=== PATIENT | male | born 1960 | race Caucasian/White ===

== ENCOUNTER 2020-06-04 03:22 | Emergency (ER) | payer MEDICARE, OTHER ==
[~2020-06-04] VITALS: Ht 182.9 cm; Wt 181.8 kg
[~2020-06-04 03:22] MED LIST: ALBU8HFA IH; ASPI81TA87 PO; ATOR40TA28 PO; CARV12 PO; CARV3 PO; CARV6 PO; DICL2100G TP; FERR236T3 PO; FERR324T23 PO; FURO40 PO; ISOS30TA92 PO; LISI-893 PO; NYST15PO3 TP; PANT-31 PO; RIVA20TA PO; SIME80TA12 PO; TRAM50TA4 PO; [UNRECOGNIZED DRUG - REMARK] PO
[2020-06-04] MEDS ORDERED: ASPIRIN 81 MG CHEWABLE TABLET PO ONE (06:30)
[2020-06-04] MEDS ORDERED: NITROGLYCERIN 2% (1 GM=INCH) PACKET TP ONE (06:30)
[2020-06-04 10:31] LABS: BASOPHILS % (AUTO) 0.5 % (0.0-2.0); EOSINOPHILS % (AUTO) 6.8 % (1.0-6.0); HEMATOCRIT 39.4 % (41-53); HEMOGLOBIN 12.7 g/dL (13.5-17.5); LYMPHOCYTES # (AUTO) 0.8 K/uL (1.0-4.8); LYMPHOCYTES % (AUTO) 13.1 % (22.0-44.0); MEAN CORPUSCULAR HGB CONC 32.1 G/dL (31.0-37.0); MEAN CORPUSCULAR VOLUME 84 fL (80-100); MONOCYTES # (AUTO) 0.5 K/uL (0.1-1.0); NEUTROPHILS # (AUTO) 4.4 K/uL (1.8-7.7); NEUTROPHILS % (AUTO) 71.6 % (40.0-70.0); PLATELET COUNT (AUTO) 217 K/uL (150-450); RED BLOOD CELL COUNT(AUTO) 4.69 MIL/uL (4.50-5.90); RED CELL DISTRIBUTION WIDTH 16.6 % (11.5-14.5)
[2020-06-04 10:49] LABS: ANION GAP 8 mmol/L (8-16); CALCIUM, TOTAL 8.9 mg/dL (8.8-10.5); CARBON DIOXIDE 27 mmol/L (22-29); CHLORIDE 107 mmol/L (98-107); CREATININE 0.88 mg/dL (0.60-1.30); GLOMERULAR FILTR. RATE CALC > 60 mL/min (>60); GLUCOSE,RANDOM 110 mg/dL (70-110); POTASSIUM 4.1 mmol/L (3.5-5.1); SODIUM SERUM 142 mmol/L (136-145); UREA NITROGEN, BLOOD 18 mg/dL (7-18)
[2020-06-04 11:18] VITALS: BP 152/79
== END 2020-06-04 11:51 | disposition home or self-care (01) ==
LOC: EMS 03:22
DX: R07.89 Other chest pain (principal); R06.02 Shortness of breath; I48.91 Unspecified atrial fibrillation; F41.9 Anxiety disorder, unspecified; J45.909 Unspecified asthma, uncomplicated; I11.0 Hypertensive heart disease with heart failure; I50.9 Heart failure, unspecified; E78.00 Pure hypercholesterolemia, unspecified; I25.2 Old myocardial infarction; Z86.73 Personal history of transient ischemic attack (TIA), and cerebral infarction without residual deficits; Z88.5 Allergy status to narcotic agent; Z88.1 Allergy status to other antibiotic agents; Z88.0 Allergy status to penicillin; Z79.82 Long term (current) use of aspirin; Z79.899 Other long term (current) drug therapy
CPT/HCPCS: 93005; 99285; 36415-L1; 36415-TC; 71045-TC

== ENCOUNTER 2022-04-10 21:49 | Emergency (ER) | payer MEDICARE, OTHER ==
[~2022-04-10] VITALS: Ht 182.9 cm; Wt 181.8 kg
[~2022-04-10 21:49] MED LIST changes: +ALBU18HF12 IH; -ALBU8HFA IH; +DICL100G51 TP; -DICL2100G TP; +TRAM-559 PO; -TRAM50TA4 PO
[2022-04-10 22:30] LABS: GLUCOMETER DEV NAME(LOC) ERT.5; GLUCOSE,POINT OF CARE 85 MG/DL (70-110)
[2022-04-10] MEDS ORDERED: LOSA-382 PO (22:32)
[2022-04-10] MEDS ORDERED: SENN-187 PO (22:32)
[2022-04-10] MEDS ORDERED: METO25 PO (22:32)
[2022-04-10] MEDS ORDERED: PRAV20TA4 PO (22:32)
[2022-04-10] MEDS ORDERED: HYDR-4584 PO (22:32)
[2022-04-10] MEDS ORDERED: RANO500T27 PO (22:32)
[2022-04-10] MEDS ORDERED: CYAN500T56 PO (22:32)
[2022-04-10] MEDS ORDERED: FERR324T9 PO (22:32)
[2022-04-10] MEDS ORDERED: SPIR-37 PO (22:32)
[2022-04-10] MEDS ORDERED: NITR0.4T52 SL (22:32)
[2022-04-10] MEDS ORDERED: ISOS60TA77 PO (22:32)
[2022-04-10] MEDS ORDERED: EMPA25TA3 PO (22:32)
[2022-04-10] MEDS ORDERED: FURO20 PO (22:32)
[2022-04-10 23:05] LABS: APPEARANCE,URINE CLEAR (CLEAR); BILIRUBIN,URINE NEGATIVE (NEGATIVE); GLUCOSE, URINE (UA) 70-100 mg/dL (NEGATIVE); KETONES,URINE TRACE mg/dL (NEGATIVE); LEUKOCYTE ESTERASE ,URINE MODERATE (NEGATIVE); NITRATE,URINE NEGATIVE (NEGATIVE); OCCULT BLOOD,URINE NEGATIVE (NEGATIVE); PH,URINE 5.5 (5.0-8.0); PROTEIN,URINE 30-70 mg/dL (NEGATIVE)
[2022-04-10 23:27] LABS: RBC,URINE 0-2 /HPF (0-2)
[2022-04-10 23:28] LABS: BACTERIA,URINE Few /HPF (None Seen); HYALINE CASTS, URINE 0-2 /LPF (None Seen); SQUAMOUS EPITHELIAL CELL,UR Few /LPF (None Seen); YEAST,URINE Few /HPF (None Seen)
[2022-04-10] MEDS ORDERED: ONDANSETRON HCL 4 MG TABLET PO ONE (23:30)
[2022-04-10] MEDS ORDERED: BACITRACIN 0.9 GM PACKET OINTMENT TP ONE (23:30)
[2022-04-10] MEDS ORDERED: OxyCODONE HCL 5 MG IR TABLET PO ONE (23:30)
[2022-04-10] MEDS ORDERED: FAMOTIDINE 20 MG TABLET PO ONE (23:30)
[2022-04-10] MEDS ORDERED: MAG HYDROX/AL HYDROX/SIMETH 30 ML SUSP UDCUP PO ONE (23:30)
[2022-04-11 00:57] LABS: BASOPHILS % (AUTO) 0.6 % (0.0-2.0); EOSINOPHILS % (AUTO) 5.1 % (1.0-6.0); HEMATOCRIT 37.3 % (41-53); HEMOGLOBIN 12.2 g/dL (13.5-17.5); LYMPHOCYTES # (AUTO) 1.3 K/uL (1.0-4.8); LYMPHOCYTES % (AUTO) 24.2 % (22.0-44.0); MEAN CORPUSCULAR HEMOGLOBIN 27.6 pg (26.0-34.0); MEAN CORPUSCULAR HGB CONC 32.6 G/dL (31.0-37.0); MEAN CORPUSCULAR VOLUME 85 fL (80-100); MONOCYTES # (AUTO) 0.6 K/uL (0.1-1.0); NEUTROPHILS # (AUTO) 3.2 K/uL (1.8-7.7); NEUTROPHILS % (AUTO) 59.1 % (40.0-70.0); PLATELET COUNT (AUTO) 264 K/uL (150-450); RED BLOOD CELL COUNT(AUTO) 4.41 MIL/uL (4.50-5.90); RED CELL DISTRIBUTION WIDTH 17.3 % (11.5-14.5)
[2022-04-11 01:06] LABS: ANION GAP 8 mmol/L (8-16); CALCIUM, TOTAL 8.8 mg/dL (8.8-10.5); CARBON DIOXIDE 27 mmol/L (22-29); CHLORIDE 101 mmol/L (98-107); GLOMERULAR FILTR. RATE CALC > 60 mL/min (>60); GLUCOSE,RANDOM 100 mg/dL (70-110); POTASSIUM 3.8 mmol/L (3.5-5.1); SODIUM SERUM 136 mmol/L (136-145)
[2022-04-11 01:24] LABS: B-TYPE NATRIURETIC PEPTIDE 49 pg/mL (0-100)
[2022-04-11 01:30] LABS: ALANINE AMINOTRANSFERASE 34 U/L (12-78); ALBUMIN 3.4 g/dL (3.4-5.0); ALKALINE PHOSPHATASE 82 U/L (46-116); ASPARTATE AMINOTRANSFERASE 26 U/L (15-37); BILIRUBIN,TOTAL 0.5 mg/dL (0.1-1.0); CREATINE KINASE, TOTAL ONLY 137 U/L (39-308); LIPASE 77 U/L (73-393); TOTAL PROTEIN, SERUM 7.9 g/dL (6.4-8.2)
[2022-04-11] MEDS ORDERED: IOHEXOL 350 MG/ML 100 ML VIAL ONE (02:03)
[2022-04-11] MEDS ORDERED: SODIUM CHLORIDE 0.9% 100 ML ONE (02:03)
[2022-04-11] MEDS ORDERED: ACETAMINOPHEN 500 MG TABLET PO ONE (03:15)
[2022-04-11] MEDS ORDERED: NITROFURANTOIN MONOHYD/M-CRYST 100 MG CAPSULE [MACROBID] PO ONE (04:00)
[2022-04-11] MEDS ORDERED: NITR-75 PO (04:01)
[2022-04-11 05:00] VITALS: BP 140/98
== END 2022-04-11 06:07 | disposition home or self-care (01) ==
LOC: EMS 21:54
DX: N39.0 Urinary tract infection, site not specified (principal); I48.91 Unspecified atrial fibrillation; F41.9 Anxiety disorder, unspecified; J45.909 Unspecified asthma, uncomplicated; E78.00 Pure hypercholesterolemia, unspecified; I11.0 Hypertensive heart disease with heart failure; I50.9 Heart failure, unspecified; G47.39 Other sleep apnea; Z88.0 Allergy status to penicillin; Z88.2 Allergy status to sulfonamides; Z88.5 Allergy status to narcotic agent
CPT/HCPCS: 80053; 81001; 82550; 82962; 83690; 83880; 84484; 85025; 36415; 87086; 87186; 71045; 99285; 93005; 71260; 72193; 74160; Q0162; Q9967; J7050

== ENCOUNTER 2022-12-14 07:26 | Emergency (ER) | payer OTHER ==
[~2022-12-14] VITALS: Ht 182.9 cm; Wt 190.9 kg
[~2022-12-14 07:26] MED LIST changes: -ALBU18HF12 IH; -ATOR40TA28 PO; +ATOR40TA71 PO; -CARV12 PO; -CARV3 PO; -CARV6 PO; +CYAN500T56 PO; -DICL100G51 TP; +EMPA25TA3 PO; -FERR236T3 PO; -FERR324T23 PO; +FERR324T9 PO; +FURO20 PO; -FURO40 PO; +HYDR-4584 PO; -ISOS30TA92 PO; +ISOS60TA77 PO; +LEVO500 PO; -LISI-893 PO; +LOSA-382 PO; +METO25 PO; +NITR0.4T52 SL; -NYST15PO3 TP; +PRAV20TA4 PO; +RANO500T27 PO; +SENN-376 PO; -SIME80TA12 PO; +SPIR-37 PO; -TRAM-559 PO; -[UNRECOGNIZED DRUG - REMARK] PO
[2022-12-14 07:43] VITALS: TEMP 98.2
[2022-12-14] MEDS ORDERED: BACITRACIN 0.9 GM PACKET OINTMENT TP ONE (07:45)
[2022-12-14] MEDS ORDERED: MAG HYDROX/ALUMINUM HYD/SIMETH 30 ML SUSPENSION UDCUP PO ONE (07:45)
[2022-12-14] MEDS ORDERED: ACETAMINOPHEN 500 MG TABLET PO ONE (07:45)
[2022-12-14] MEDS ORDERED: FAMOTIDINE 20 MG TABLET PO ONE (07:45)
[2022-12-14 08:30] LABS: BASOPHILS % (AUTO) 0.4 % (0.0-2.0); EOSINOPHILS % (AUTO) 6.2 % (1.0-6.0); HEMOGLOBIN 11.9 g/dL (13.5-17.5); LYMPHOCYTES # (AUTO) 0.7 K/uL (1.0-4.8); LYMPHOCYTES % (AUTO) 14.6 % (22.0-44.0); MEAN CORPUSCULAR HEMOGLOBIN 27.5 pg (26.0-34.0); MEAN CORPUSCULAR HGB CONC 32.2 G/dL (31.0-37.0); MEAN CORPUSCULAR VOLUME 86 fL (80-100); MONOCYTES # (AUTO) 0.4 K/uL (0.1-1.0); NEUTROPHILS # (AUTO) 3.2 K/uL (1.8-7.7); NEUTROPHILS % (AUTO) 69.8 % (40.0-70.0); PLATELET COUNT (AUTO) 231 K/uL (150-450); RED BLOOD CELL COUNT(AUTO) 4.33 MIL/uL (4.50-5.90); RED CELL DISTRIBUTION WIDTH 17.9 % (11.5-14.5); WHITE BLOOD COUNT (AUTO) 4.6 K/uL (4.5-11.0)
[2022-12-14 08:41] LABS: ANION GAP 7 mmol/L (8-16); CALCIUM, TOTAL 9.3 mg/dL (8.8-10.5); CARBON DIOXIDE 31 mmol/L (22-29); CHLORIDE 101 mmol/L (98-107); CREATININE 0.74 mg/dL (0.60-1.30); GLOMERULAR FILTR. RATE CALC > 60 mL/min (>60); GLUCOSE,RANDOM 101 mg/dL (70-110); POTASSIUM 4.1 mmol/L (3.5-5.1); SODIUM SERUM 139 mmol/L (136-145); UREA NITROGEN, BLOOD 11 mg/dL (7-18)
[2022-12-14 08:47] LABS: ALANINE AMINOTRANSFERASE 9 U/L (12-78); ALCOHOL, BLOOD (SERUM) < 3 mg/dL (0-10); ALKALINE PHOSPHATASE 68 U/L (46-116); ASPARTATE AMINOTRANSFERASE 16 U/L (15-37); BILIRUBIN,TOTAL 0.6 mg/dL (0.1-1.0); CREATINE KINASE, TOTAL ONLY 74 U/L (39-308); TROPONIN I-HIGH SENSITIVITY 13 ng/L (<76)
[2022-12-14 08:52] LABS: ALCOHOL, URINE DRUG SCREEN NEGATIVE (NEGATIVE); AMPHET/METH SCREEN,URINE NEGATIVE (NEGATIVE); BARBITURATE SCREEN, URINE NEGATIVE (NEGATIVE); BENZODIAZEPINES SCREEN,URINE NEGATIVE (NEGATIVE); CANNABINOID SCREEN,URINE NEGATIVE (NEGATIVE); COCAINE SCREEN,URINE NEGATIVE (NEGATIVE); METHADONE SCREEN, URINE NEGATIVE (NEGATIVE); OPIATE SCREEN,URINE NEGATIVE (NEGATIVE); PHENCYCLIDINE SCREEN,URINE NEGATIVE (NEGATIVE)
[2022-12-14 08:53] LABS: B-TYPE NATRIURETIC PEPTIDE 72 pg/mL (0-100)
[2022-12-14 10:50] LABS: TROPONIN I-HIGH SENSITIVITY 16 ng/L (<76)
[2022-12-14 11:27] VITALS: BP 132/69; PULSE 74; RESP 18
== END 2022-12-14 11:28 | disposition home or self-care (01) ==
LOC: EMS 07:33
DX: R07.89 Other chest pain (principal); F41.9 Anxiety disorder, unspecified; J45.909 Unspecified asthma, uncomplicated; E78.00 Pure hypercholesterolemia, unspecified; I11.0 Hypertensive heart disease with heart failure; I50.9 Heart failure, unspecified; Z98.890 Other specified postprocedural states; Z88.0 Allergy status to penicillin; Z88.2 Allergy status to sulfonamides; Z88.6 Allergy status to analgesic agent
CPT/HCPCS: 99285; 71045; 80053; 82550; 83880; 84484; 85025; 36415; 93005; 80307; G0480

== ENCOUNTER 2022-12-27 22:35 | Inpatient (IN) | payer MEDICARE, BC, OTHER ==
[~2022-12-27] VITALS: Ht 182.9 cm; Wt 194.5 kg
[~2022-12-27 22:35] MED LIST changes: -LEVO500 PO; -PANT-31 PO; -SENN-376 PO
[2022-12-28 00:37] LABS: ANION GAP 8 mmol/L (8-16); CALCIUM, TOTAL 8.7 mg/dL (8.8-10.5); CARBON DIOXIDE 27 mmol/L (22-29); CHLORIDE 104 mmol/L (98-107); CREATININE 0.86 mg/dL (0.60-1.30); GLOMERULAR FILTR. RATE CALC > 60 mL/min (>60); GLUCOSE,RANDOM 124 mg/dL (70-110); POTASSIUM 3.8 mmol/L (3.5-5.1); SODIUM SERUM 138 mmol/L (136-145); UREA NITROGEN, BLOOD 20 mg/dL (7-18)
[2022-12-28 00:43] LABS: ALANINE AMINOTRANSFERASE 15 U/L (12-78); ALBUMIN 2.9 g/dL (3.4-5.0); ALKALINE PHOSPHATASE 83 U/L (46-116); ASPARTATE AMINOTRANSFERASE 14 U/L (15-37); BILIRUBIN,TOTAL 0.4 mg/dL (0.1-1.0); LIPASE 31 U/L (16-77)
[2022-12-28 00:45] LABS: LACTIC ACID 1.4 mmol/L (0.4-2.0)
[2022-12-28] MEDS ORDERED: ONDANSETRON HCL 4 MG/2 ML VIAL IVP PRN (01:00)
[2022-12-28] MEDS ORDERED: HydrOXYzine PAMOATE 50 MG CAPSULE PO PRN (01:15)
[2022-12-28 01:17] LABS: TROPONIN I-HIGH SENSITIVITY 12 ng/L (<76)
[2022-12-28 02:10] LABS: APPEARANCE,URINE CLEAR (CLEAR); BILIRUBIN,URINE NEGATIVE (NEGATIVE); COLOR,URINE LIGHT YELLOW (YELLOW); GLUCOSE, URINE (UA) NEGATIVE (NEGATIVE); KETONES,URINE NEGATIVE (NEGATIVE); LEUKOCYTE ESTERASE ,URINE MODERATE (NEGATIVE); NITRATE,URINE NEGATIVE (NEGATIVE); OCCULT BLOOD,URINE NEGATIVE (NEGATIVE); PH,URINE 7.5 (5.0-8.0); PH,URINE DRUG SCREEN 7.5 (5.0-8.0); PROTEIN,URINE 30-70 mg/dL (NEGATIVE); UROBILINOGEN,URINE <=1.0 mg/dL (<=1.0)
[2022-12-28 02:14] LABS: ALCOHOL, URINE DRUG SCREEN NEGATIVE (NEGATIVE); AMPHET/METH SCREEN,URINE NEGATIVE (NEGATIVE); BARBITURATE SCREEN, URINE NEGATIVE (NEGATIVE); BENZODIAZEPINES SCREEN,URINE NEGATIVE (NEGATIVE); CANNABINOID SCREEN,URINE NEGATIVE (NEGATIVE); COCAINE SCREEN,URINE NEGATIVE (NEGATIVE); METHADONE SCREEN, URINE NEGATIVE (NEGATIVE); OPIATE SCREEN,URINE NEGATIVE (NEGATIVE); PHENCYCLIDINE SCREEN,URINE NEGATIVE (NEGATIVE)
[2022-12-28 02:31] LABS: BACTERIA,URINE Many /HPF (None Seen); RBC,URINE None Seen /HPF (0-2); SQUAMOUS EPITHELIAL CELL,UR Few /LPF (None Seen)
[2022-12-28] MEDS ORDERED: CEPHALEXIN MONOHYDRATE 500 MG CAPSULE PO ONE (04:15)
[2022-12-28] MEDS ORDERED: HEPARIN SODIUM,PORCINE 5,000 UNITS/ML VIAL SQ SCH (08:00)
[2022-12-28] MEDS ORDERED: INSULIN LISPRO 100 UNITS/ML SQ PRN (08:00)
[2022-12-28] MEDS ORDERED: DEXTROSE 50%-WATER 25 GM/50 ML SYRINGE IVP PRN (08:00)
[2022-12-28] MEDS ORDERED: *CLINICAL-LEVOFLOXACIN ORAL DOSING CLINICAL ONE (08:45)
[2022-12-28 08:53] VITALS: BP 139/68; PULSE 86; RESP 19; TEMP 98
[2022-12-28] MEDS ORDERED: FUROSEMIDE 20 MG TABLET PO SCH (09:00)
[2022-12-28] MEDS ORDERED: FUROSEMIDE 20 MG/2 ML VIAL IVP SCH (09:00)
[2022-12-28] MEDS: DOCUSATE SODIUM 100 MG CAPSULE PO SCH ×2 (09:00→21:00)
[2022-12-28] MEDS ORDERED: CefTRIAXone 1 GM/DEXTROSE 50 ML IV SCH (10:00)
[2022-12-28] MEDS: CYANOCOBALAMIN 500 MCG TABLET PO SCH (10:20)
[2022-12-28] MEDS: RANOLAZINE 500 MG ER TABLET PO SCH ×2 (10:20→21:16)
[2022-12-28] MEDS: ASPIRIN 81 MG DR TABLET PO SCH (10:20)
[2022-12-28] MEDS: SPIRONOLACTONE 25 MG TABLET PO SCH (10:21)
[2022-12-28] MEDS: METOPROLOL TARTRATE 25 MG TABLET PO SCH ×2 (10:21→21:16)
[2022-12-28] MEDS: LOSARTAN POTASSIUM 50 MG TABLET PO SCH (10:21)
[2022-12-28] MEDS: LEVOFLOXACIN 750 MG TABLET PO SCH (10:21)
[2022-12-28] MEDS: ISOSORBIDE MONONITRATE 60 MG ER TABLET PO SCH (10:22)
[2022-12-28] MEDS: FUROSEMIDE 20 MG TABLET PO SCH ×2 (10:22→21:16)
[2022-12-28 11:28] LABS: BASOPHILS % (AUTO) 1.1 % (0.0-2.0); EOSINOPHILS % (AUTO) 6.9 % (1.0-6.0); HEMATOCRIT 40.5 % (41-53); HEMOGLOBIN 12.9 g/dL (13.5-17.5); LYMPHOCYTES # (AUTO) 0.8 K/uL (1.0-4.8); MEAN CORPUSCULAR HEMOGLOBIN 27.8 pg (26.0-34.0); MEAN CORPUSCULAR HGB CONC 31.8 G/dL (31.0-37.0); MEAN CORPUSCULAR VOLUME 87 fL (80-100); MONOCYTES # (AUTO) 0.2 K/uL (0.1-1.0); MONOCYTES % (AUTO) 4.5 % (2.0-9.0); NEUTROPHILS # (AUTO) 3.1 K/uL (1.8-7.7); NEUTROPHILS % (AUTO) 69.5 % (40.0-70.0); PLATELET COUNT (AUTO) 127 K/uL (150-450); RED BLOOD CELL COUNT(AUTO) 4.63 MIL/uL (4.50-5.90); RED CELL DISTRIBUTION WIDTH 18.6 % (11.5-14.5); WHITE BLOOD COUNT (AUTO) 4.5 K/uL (4.5-11.0)
[2022-12-28 11:52] LABS: TROPONIN I-HIGH SENSITIVITY 18 ng/L (<76)
[2022-12-28 12:02] VITALS: BP 124/73; PULSE 66; RESP 18; TEMP 98.5
[2022-12-28] MEDS: ACETAMINOPHEN 325 MG TABLET PO PRN (13:50)
[2022-12-28] MEDS ORDERED: NYSTATIN 15 GM POWDER BOTTLE TP PRN (14:15)
[2022-12-28] MEDS: NITROGLYCERIN 0.4 MG SUBLINGUAL TABLET #25 SL PRN (14:43)
[2022-12-28] MEDS ORDERED: ALBUTEROL SULFATE HFA 90 MCG/PUFF 8 GM INHALER IH PRN (15:00)
[2022-12-28 16:34] VITALS: BP 109/64; PULSE 78; RESP 20; TEMP 98.6
[2022-12-28] MEDS: RIVAROXABAN 20 MG TABLET PO SCH (17:10)
[2022-12-28] MEDS: DICLOFENAC SODIUM 1% 100 GM GEL [4GM] TP PRN (17:11)
[2022-12-28 20:14] VITALS: BP 122/50; PULSE 87; RESP 22; TEMP 98.3
[2022-12-28] MEDS ORDERED: PRAVASTATIN SODIUM 20 MG TABLET PO SCH (21:00)
[2022-12-28] MEDS: INSULIN GLARGINE,HUM.REC.ANLOG 100 UNITS/ML SQ SCH (21:00)
[2022-12-28] MEDS: ATORVASTATIN CALCIUM 40 MG TABLET PO SCH (21:16)
[2022-12-29] MEDS: NITROGLYCERIN 0.4 MG SUBLINGUAL TABLET #25 SL PRN ×2 (03:40→23:14)
[2022-12-29 04:13] VITALS: BP 115/61; PULSE 58; RESP 20; TEMP 97.8
[2022-12-29 08:45] VITALS: BP 114/55; PULSE 84; RESP 18; TEMP 98
[2022-12-29] MEDS: FUROSEMIDE 20 MG TABLET PO SCH ×2 (09:07→20:29)
[2022-12-29] MEDS: LEVOFLOXACIN 750 MG TABLET PO SCH (09:07)
[2022-12-29] MEDS: ISOSORBIDE MONONITRATE 60 MG ER TABLET PO SCH (09:07)
[2022-12-29] MEDS: METOPROLOL TARTRATE 25 MG TABLET PO SCH ×2 (09:07→20:29)
[2022-12-29] MEDS: DOCUSATE SODIUM 100 MG CAPSULE PO SCH ×2 (09:07→20:29)
[2022-12-29] MEDS: RANOLAZINE 500 MG ER TABLET PO SCH ×2 (09:07→20:29)
[2022-12-29] MEDS: ASPIRIN 81 MG DR TABLET PO SCH (09:07)
[2022-12-29] MEDS: LOSARTAN POTASSIUM 50 MG TABLET PO SCH (09:07)
[2022-12-29] MEDS: SPIRONOLACTONE 25 MG TABLET PO SCH (09:08)
[2022-12-29] MEDS: CYANOCOBALAMIN 500 MCG TABLET PO SCH (09:17)
[2022-12-29 13:52] LABS: BASOPHILS % (AUTO) 0.8 % (0.0-2.0); EOSINOPHILS % (AUTO) 5.7 % (1.0-6.0); HEMATOCRIT 37.6 % (41-53); HEMOGLOBIN 12.1 g/dL (13.5-17.5); LYMPHOCYTES % (AUTO) 14.9 % (22.0-44.0); MEAN CORPUSCULAR HEMOGLOBIN 27.6 pg (26.0-34.0); MEAN CORPUSCULAR HGB CONC 32.2 G/dL (31.0-37.0); MEAN CORPUSCULAR VOLUME 86 fL (80-100); MONOCYTES # (AUTO) 0.4 K/uL (0.1-1.0); MONOCYTES % (AUTO) 6.4 % (2.0-9.0); NEUTROPHILS # (AUTO) 4.8 K/uL (1.8-7.7); NEUTROPHILS % (AUTO) 72.2 % (40.0-70.0); PLATELET COUNT (AUTO) 223 K/uL (150-450); RED BLOOD CELL COUNT(AUTO) 4.39 MIL/uL (4.50-5.90); RED CELL DISTRIBUTION WIDTH 18.1 % (11.5-14.5); WHITE BLOOD COUNT (AUTO) 6.7 K/uL (4.5-11.0)
[2022-12-29 14:00] LABS: ANION GAP 7 mmol/L (8-16); CALCIUM, TOTAL 8.7 mg/dL (8.8-10.5); CARBON DIOXIDE 27 mmol/L (22-29); CHLORIDE 101 mmol/L (98-107); GLOMERULAR FILTR. RATE CALC > 60 mL/min (>60); GLUCOSE,RANDOM 144 mg/dL (70-110); POTASSIUM 4.2 mmol/L (3.5-5.1); SODIUM SERUM 135 mmol/L (136-145); UREA NITROGEN, BLOOD 19 mg/dL (7-18)
[2022-12-29 14:09] LABS: TROPONIN I-HIGH SENSITIVITY 16 ng/L (<76)
[2022-12-29 15:23] VITALS: BP 104/55; PULSE 99; RESP 19; TEMP 97.8
[2022-12-29] MEDS: RIVAROXABAN 20 MG TABLET PO SCH (17:19)
[2022-12-29] MEDS: ATORVASTATIN CALCIUM 40 MG TABLET PO SCH (20:29)
[2022-12-29] MEDS: INSULIN GLARGINE,HUM.REC.ANLOG 100 UNITS/ML SQ SCH (20:31)
[2022-12-29 22:08] VITALS: BP 114/57; PULSE 78; RESP 20; TEMP 98
[2022-12-29 22:16] LABS: GLUCOMETER DEV NAME(LOC) 5N.1C; GLUCOSE,POINT OF CARE 165 MG/DL (70-110)
[2022-12-29 22:16] LABS: GLUCOMETER DEV NAME(LOC) 5N.1C; GLUCOSE,POINT OF CARE 102 MG/DL (70-110)
[2022-12-29] MEDS: DICLOFENAC SODIUM 1% 100 GM GEL [4GM] TP PRN (22:36)
[2022-12-29] MEDS: ACETAMINOPHEN 325 MG TABLET PO PRN (23:17)
[2022-12-29 23:22] VITALS: BP 96/44; PULSE 79; RESP 18; TEMP 97.8
[2022-12-30] MEDS: NITROGLYCERIN 0.4 MG SUBLINGUAL TABLET #25 SL PRN (01:11)
[2022-12-30] MEDS: CALCIUM CARBONATE 500 MG CHEWABLE TABLET CHEW PRN (03:12)
[2022-12-30 08:00] VITALS: BP 146/73; PULSE 75; RESP 18; TEMP 98.4
[2022-12-30] MEDS: CYANOCOBALAMIN 500 MCG TABLET PO SCH (08:12)
[2022-12-30] MEDS: DOCUSATE SODIUM 100 MG CAPSULE PO SCH ×2 (08:12→21:32)
[2022-12-30] MEDS: RANOLAZINE 500 MG ER TABLET PO SCH ×2 (08:12→21:32)
[2022-12-30] MEDS: SPIRONOLACTONE 25 MG TABLET PO SCH (08:13)
[2022-12-30] MEDS: FUROSEMIDE 20 MG TABLET PO SCH ×2 (08:14→21:35)
[2022-12-30] MEDS: LEVOFLOXACIN 750 MG TABLET PO SCH (08:14)
[2022-12-30] MEDS: ISOSORBIDE MONONITRATE 60 MG ER TABLET PO SCH (08:14)
[2022-12-30] MEDS: ASPIRIN 81 MG DR TABLET PO SCH (08:14)
[2022-12-30] MEDS: LOSARTAN POTASSIUM 50 MG TABLET PO SCH (08:14)
[2022-12-30] MEDS: METOPROLOL TARTRATE 25 MG TABLET PO SCH ×2 (08:14→21:32)
[2022-12-30 12:00] VITALS: BP 135/66; PULSE 71; RESP 18; TEMP 98.4
[2022-12-30 16:00] VITALS: BP 128/72; PULSE 18; RESP 18; TEMP 98.5
[2022-12-30] MEDS: RIVAROXABAN 20 MG TABLET PO SCH (17:23)
[2022-12-30 20:06] VITALS: BP 120/55; PULSE 87; RESP 20; TEMP 98.7
[2022-12-30] MEDS: INSULIN GLARGINE,HUM.REC.ANLOG 100 UNITS/ML SQ SCH (21:00)
[2022-12-30] MEDS: ATORVASTATIN CALCIUM 40 MG TABLET PO SCH (21:32)
[2022-12-30] MEDS: ETHYL ALCOHOL 62% ANTISEPTIC NASAL SANITIZER 0.6 ML AMPUL NASAL SCH (21:32)
[2022-12-31 00:51] LABS: GLUCOMETER DEV NAME(LOC) 5N.2C; GLUCOSE,POINT OF CARE 111 MG/DL (70-110)
[2022-12-31 00:51] LABS: GLUCOMETER DEV NAME(LOC) 5N.2C; GLUCOSE,POINT OF CARE 140 MG/DL (70-110)
[2022-12-31 02:25] VITALS: BP 111/68; PULSE 79; RESP 20; TEMP 98
[2022-12-31] MEDS: CALCIUM CARBONATE 500 MG CHEWABLE TABLET CHEW PRN (03:06)
[2022-12-31 08:12] VITALS: BP 118/70; PULSE 82; RESP 20; TEMP 98.2
[2022-12-31 09:13] VITALS: BP 95/60; PULSE 81; RESP 19; TEMP 98
[2022-12-31] MEDS: ASPIRIN 81 MG DR TABLET PO SCH (10:09)
[2022-12-31] MEDS: LEVOFLOXACIN 750 MG TABLET PO SCH (10:09)
[2022-12-31] MEDS: METOPROLOL TARTRATE 25 MG TABLET PO SCH ×2 (10:09→20:09)
[2022-12-31] MEDS: SPIRONOLACTONE 25 MG TABLET PO SCH (10:10)
[2022-12-31] MEDS: FUROSEMIDE 20 MG TABLET PO SCH ×2 (10:10→20:09)
[2022-12-31] MEDS: CYANOCOBALAMIN 500 MCG TABLET PO SCH (10:10)
[2022-12-31] MEDS: RANOLAZINE 500 MG ER TABLET PO SCH ×2 (10:10→20:09)
[2022-12-31] MEDS: ISOSORBIDE MONONITRATE 60 MG ER TABLET PO SCH (10:10)
[2022-12-31] MEDS: LOSARTAN POTASSIUM 50 MG TABLET PO SCH (10:10)
[2022-12-31] MEDS: ETHYL ALCOHOL 62% ANTISEPTIC NASAL SANITIZER 0.6 ML AMPUL NASAL SCH ×2 (10:11→20:08)
[2022-12-31] MEDS: DOCUSATE SODIUM 100 MG CAPSULE PO SCH ×2 (10:11→20:09)
[2022-12-31 11:16] LABS: GLUCOMETER DEV NAME(LOC) 6S.2; GLUCOSE,POINT OF CARE 118 MG/DL (70-110)
[2022-12-31 12:32] LABS: GLUCOMETER DEV NAME(LOC) 5S.2C; GLUCOSE,POINT OF CARE 108 MG/DL (70-110)
[2022-12-31 15:33] VITALS: BP 104/68; PULSE 84; RESP 19; TEMP 98.4
[2022-12-31] MEDS: RIVAROXABAN 20 MG TABLET PO SCH (18:14)
[2022-12-31] MEDS: DICLOFENAC SODIUM 1% 100 GM GEL [4GM] TP PRN (18:14)
[2022-12-31] MEDS: ACETAMINOPHEN 325 MG TABLET PO PRN (18:14)
[2022-12-31 19:50] VITALS: BP 115/52; PULSE 70; RESP 18; TEMP 98
[2022-12-31] MEDS: ATORVASTATIN CALCIUM 40 MG TABLET PO SCH (20:09)
[2022-12-31] MEDS: INSULIN GLARGINE,HUM.REC.ANLOG 100 UNITS/ML SQ SCH (21:00)
[2023-01-01 08:45] VITALS: BP 106/59; PULSE 87; RESP 19; TEMP 98.4
[2023-01-01] MEDS: ETHYL ALCOHOL 62% ANTISEPTIC NASAL SANITIZER 0.6 ML AMPUL NASAL SCH (09:34)
[2023-01-01] MEDS: RANOLAZINE 500 MG ER TABLET PO SCH (09:34)
[2023-01-01] MEDS: LEVOFLOXACIN 750 MG TABLET PO SCH (09:34)
[2023-01-01] MEDS: FUROSEMIDE 20 MG TABLET PO SCH (09:34)
[2023-01-01] MEDS: CYANOCOBALAMIN 500 MCG TABLET PO SCH (09:34)
[2023-01-01] MEDS: LOSARTAN POTASSIUM 50 MG TABLET PO SCH (09:34)
[2023-01-01] MEDS: ASPIRIN 81 MG DR TABLET PO SCH (09:34)
[2023-01-01] MEDS: DOCUSATE SODIUM 100 MG CAPSULE PO SCH (09:34)
[2023-01-01] MEDS: ISOSORBIDE MONONITRATE 60 MG ER TABLET PO SCH (09:34)
[2023-01-01] MEDS: SPIRONOLACTONE 25 MG TABLET PO SCH (09:34)
[2023-01-01] MEDS: METOPROLOL TARTRATE 25 MG TABLET PO SCH (09:34)
[2023-01-01 11:31] LABS: GLUCOMETER DEV NAME(LOC) 6N.1B; GLUCOSE,POINT OF CARE 164 MG/DL (70-110)
[2023-01-01 11:46] LABS: GLUCOMETER DEV NAME(LOC) 6S.2; GLUCOSE,POINT OF CARE 98 MG/DL (70-110)
[2023-01-01] MEDS ORDERED: ETHY1MED2 NASAL (12:00)
[2023-01-01] MEDS ORDERED: LEVO750T68 PO (12:01)
== END 2023-01-01 14:15 | disposition home or self-care (01) | DRG 291 ==
LOC: EMS 22:35 → 5S 12-28 01:01 → 6S 12-31 02:00
PROVIDERS: ADMIT Internal Medicine; ATTEND Internal Medicine
DX: I11.0 Hypertensive heart disease with heart failure (principal); I50.43 Acute on chronic combined systolic (congestive) and diastolic (congestive) heart failure; E66.2 Morbid (severe) obesity with alveolar hypoventilation; I48.20 Chronic atrial fibrillation, unspecified; N39.0 Urinary tract infection, site not specified; Z59.00 Homelessness unspecified; Z68.43 Body mass index [BMI] 50.0-59.9, adult; E44.0 Moderate protein-calorie malnutrition; I25.10 Atherosclerotic heart disease of native coronary artery without angina pectoris; E78.00 Pure hypercholesterolemia, unspecified; F41.9 Anxiety disorder, unspecified; J45.909 Unspecified asthma, uncomplicated; G89.29 Other chronic pain; E11.9 Type 2 diabetes mellitus without complications; Z79.01 Long term (current) use of anticoagulants; Z88.0 Allergy status to penicillin; Z88.2 Allergy status to sulfonamides; Z91.199 Patient's noncompliance with other medical treatment and regimen due to unspecified reason; Z91.85 Personal history of military service; Z88.5 Allergy status to narcotic agent; Z79.899 Other long term (current) drug therapy
CPT/HCPCS: 71045; 80048; 80053; 80307; 81001; 82962; 83605; 83690; 83735; 83880; 84484; 85025; 87081; 87086; 87186; 87481; 93005; 97110; 97163; 97167; 97530; 97535; 99285; G0378; G0480; J1815; J3535; Q9967; 36415-L1; 36415-TC